=== PATIENT | female | born 1965 | race Caucasian/White ===

== ENCOUNTER 2018-02-08 14:46 | Emergency (ER) | payer SELFPAY ==
[2018-02-08 14:53] VITALS: BP 139/87; PULSE 96; RESP 22; TEMP 36.7; O2SAT 99
--- NOTE | 2018-02-08 15:17 | ED_ITS ---
HPI - Alcohol <Cee Ann PA-C - Last Filed: 02/08/18 22:41> General Chief Complaint: Toxicology Problem Stated Complaint: alcohol withdrawal Time Seen by Provider: 02/08/18 15:16 Source: patient Mode of arrival: ambulatory Limitations: no limitations History of Present Illness HPI narrative: This 52-year-old female states that she comes in requesting inpatient rehabilitation for alcohol use. Is she states has been drinking since about age 14, cannot say how many drinks daily but states that she will drink 1-2 large bottles of vodka per week. She states that she drinks from the bottle, sometimes hiding her use from her . She states that she does not think outpatient rehab would be feasible for her as far as follow through and also because her is an alcoholic. She states that she tried hypnosis 5 years ago and does think that more intensive therapy would be doable for her. She states that she felt a little shaky earlier with some nausea but that has resolved. She denies any other drug use. She denies any chronic medical problems Related Data Home Medications Medication Instructions Recorded Confirmed No Known Home Medications 02/08/18 02/08/18 Allergies Allergy/AdvReac Type Severity Reaction Status Date / Time No Known Drug Allergies Allergy Verified 02/08/18 14:57 Review of Systems <Cee Ann PA-C - Last Filed: 02/08/18 22:41> Review of Systems All systems reviewed & are unremarkable except as noted in HPI and below Exam <Cee Ann PA-C - Last Filed: 02/08/18 22:41> Narrative Exam Narrative: GENERAL APPEARANCE: Patient sitting comfortably, in no distress. HEENT: PERRL, EOMI, no scleral icterus NECK: Supple LUNGS: Clear to auscultation bilaterally. HEART: Rate and rhythm regular, normal S1 and S2, no S3 or S4. ABDOMEN: Soft, nontender, nondistended, bowel sounds present x 4 quadrants, no masses palpable, no hepatosplenomegaly. EXTREMITIES: No edema, no cyanosis DERMATOLOGIC: No jaundice or exanthem NEUROLOGIC: Alert and oriented with normal speech and coordination Initial Vital Signs Initial Vital Signs: Vital Signs Temperature 98.0 F 02/08/18 14:53 Pulse Rate 96 H 02/08/18 14:53 Respiratory Rate 22 02/08/18 14:53 Blood Pressure 139/87 02/08/18 14:53 Pulse Oximetry 99 02/08/18 14:53 <Luis Antonio Thacker DO - Last Filed: 02/09/18 18:31> Initial Vital Signs Initial Vital Signs: Vital Signs Temperature 98.0 F 02/08/18 14:53 Pulse Rate 96 H 02/08/18 14:53 Respiratory Rate 22 02/08/18 14:53 Blood Pressure 139/87 02/08/18 14:53 Pulse Oximetry 99 02/08/18 14:53 Course <Cee Ann PA-C - Last Filed: 02/08/18 22:41> Additional Information: Patient appeared neurologically normal. She did not have tremulousness. She denied nausea. She stated that she had been thinking about leaving because she knew she would feel better if she had a drink, and she is not sure if she just goes to ?detox? for a few days this will help her as she has done that on her own at home in the past. I advised her of the dangers of alcohol withdrawal and she states that she is well aware. We were in the process of working on placement for her in [place] when she walked out of the department. I phoned her this evening with lab results including elevated sodium. I reached her cell phone message service. Advised follow-up, either here, walk-in clinic, or given the number for [facility] where she may be able to get low-cost services and behavioral treatment as well. Orders Ordered: ED Orders 02/08/18 16:40 Urine Drug Screen, Rapid Stat 02/08/18 17:17 Complete Blood Count AUTO DIFF Stat Comprehensive Metabolic Panel Stat Ethanol (ETOH) Stat Thyroid Stimulating Hormone Stat Vital Signs - 8 hr 02/08/18 14:53 Temperature 98.0 F Pulse Rate 96 H Respiratory Rate 22 Blood Pressure 139/87 Pulse Oximetry 99 <Luis Antonio Thacker DO - Last Filed: 02/09/18 18:31> Orders Ordered: ED Orders 02/08/18 16:40 Urine Drug Screen, Rapid Stat 02/08/18 17:17 Complete Blood Count AUTO DIFF Stat Comprehensive Metabolic Panel Stat Ethanol (ETOH) Stat Thyroid Stimulating Hormone Stat Vital Signs - 8 hr 02/08/18 14:53 Temperature 98.0 F Pulse Rate 96 H Respiratory Rate 22 Blood Pressure 139/87 Pulse Oximetry 99 MDM - Alcohol <Cee Ann PA-C - Last Filed: 02/08/18 22:41> Lab Data Result diagrams: 02/08/18 17:17 02/08/18 17:17 Labs: Lab Results 02/08/18 02/08/18 02/08/18 Range/Units 16:40 17:17 17:17 WBC 7.0 (4.5-11.0) X10^3/uL RBC 4.93 (4.0-5.2) X10^6/uL Hgb 15.2 (12.0-16.0) g/dL Hct 45.0 (36-46) % MCV 91.2 (80-100) fL MCH 30.9 (26-34) PG MCHC 33.9 (30-36) % RDW 15.9 H (11.6-14.8) % Plt Count 340 (150-400) X10^3/uL Neut % (Auto) 43.9 L (50-75) % Lymph % (Auto) 49.0 H (25-40) % [place] % (Auto) 3.9 (3-14) % Eos % (Auto) 2.4 (2-4) % Baso % (Auto) 0.8 (0-2) % Neut # (Auto) 3100 (0425-0202) /uL Sodium 155 H (137-145) mmol/L Potassium 4.5 (3.4-5.1) mmol/L Chloride 110 H (98-107) mmol/L Carbon Dioxide 24 (22-32) mmol/L BUN 7 (7-17) mg/dL Creatinine 0.50 L (0.52-1.04) mg/dL Estimated GFR > 60.0 (>60) mL/min BUN/Creatinine Ratio 14.0 (6-22) Glucose 93 (70-100) mg/dL Calcium 9.4 (8.4-10.2) mg/dL Total Bilirubin 0.8 (0.2-1.3) mg/dL AST 62 H (14-36) IU/L ALT 47 (9-52) IU/L Alkaline Phosphatase 70 (38-126) U/L Total Protein 8.1 (6.3-8.2) g/dL Albumin 5.0 (3.5-5.0) g/dL Globulin 3.1 (1.7-4.1) g/dL Albumin/Globulin Ratio 1.6 (1.0-2.8) TSH (0.47-4.68) uIU/mL Urine Opiates Screen Negative (Negative) Ur Oxycodone Screen Negative (Negative) Urine Methadone Screen Negative (Negative) Ur Barbiturates Screen Negative (Negative) U Tricyclic Antidepress Negative (Negative) Ur Phencyclidine Scrn Negative (Negative) Ur Amphetamines Screen Negative (Negative) U Methamphetamines Scrn Negative (Negative) Ur MDMA Scrn (Ecstasy) Negative (Negative) U Benzodiazepines Scrn Negative (Negative) Urine Cocaine Screen Negative (Negative) U Marijuana (THC) Screen Negative (Negative) Ethyl Alcohol 296 mg/dL 02/08/18 Range/Units 17:17 WBC (4.5-11.0) X10^3/uL RBC (4.0-5.2) X10^6/uL Hgb (12.0-16.0) g/dL Hct (36-46) % MCV (80-100) fL MCH (26-34) PG MCHC (30-36) % RDW (11.6-14.8) % Plt Count (150-400) X10^3/uL Neut % (Auto) (50-75) % Lymph % (Auto) (25-40) % [place] % (Auto) (3-14) % Eos % (Auto) (2-4) % Baso % (Auto) (0-2) % Neut # (Auto) (1430-6538) /uL Sodium (137-145) mmol/L Potassium (3.4-5.1) mmol/L Chloride (98-107) mmol/L Carbon Dioxide (22-32) mmol/L BUN (7-17) mg/dL Creatinine (0.52-1.04) mg/dL Estimated GFR (>60) mL/min BUN/Creatinine Ratio (6-22) Glucose (70-100) mg/dL Calcium (8.4-10.2) mg/dL Total Bilirubin (0.2-1.3) mg/dL AST (14-36) IU/L ALT (9-52) IU/L Alkaline Phosphatase (38-126) U/L Total Protein (6.3-8.2) g/dL Albumin (3.5-5.0) g/dL Globulin (1.7-4.1) g/dL Albumin/Globulin Ratio (1.0-2.8) TSH 2.50 (0.47-4.68) uIU/mL Urine Opiates Screen (Negative) Ur Oxycodone Screen (Negative) Urine Methadone Screen (Negative) Ur Barbiturates Screen (Negative) U Tricyclic Antidepress (Negative) Ur Phencyclidine Scrn (Negative) Ur Amphetamines Screen (Negative) U Methamphetamines Scrn (Negative) Ur MDMA Scrn (Ecstasy) (Negative) U Benzodiazepines Scrn (Negative) Urine Cocaine Screen (Negative) U Marijuana (THC) Screen (Negative) Ethyl Alcohol mg/dL Point of Care Testing Test Results Negative Breathalizer 0.288 Urine Dip Bedside Urine Glucose Negative Bedside Urine Bilirubin - Negative Bedside Urine Ketone - Negative Urine Specific [place] 1.010 Bedside Urine Occult Blood - Negative Bedside Urine pH 6.0 Bedside Urine Protein - Negative Bedside Urine Urobilinogen - Negative Bedside Urine Nitrite - Negative Bedside Urine Leukocytes - Negative Esterase <Luis Antonio Thacker, DO - Last Filed: 02/09/18 18:31> Lab Data Labs: Lab Results 02/08/18 02/08/18 02/08/18 Range/Units 16:40 17:17 17:17 WBC 7.0 (4.5-11.0) X10^3/uL RBC 4.93 (4.0-5.2) X10^6/uL Hgb 15.2 (12.0-16.0) g/dL Hct 45.0 (36-46) % MCV 91.2 (80-100) fL MCH 30.9 (26-34) PG MCHC 33.9 (30-36) % RDW 15.9 H (11.6-14.8) % Plt Count 340 (150-400) X10^3/uL Neut % (Auto) 43.9 L (50-75) % Lymph % (Auto) 49.0 H (25-40) % [place] % (Auto) 3.9 (3-14) % Eos % (Auto) 2.4 (2-4) % Baso % (Auto) 0.8 (0-2) % Neut # (Auto) 3100 (9549-8105) /uL Sodium 155 H (137-145) mmol/L Potassium 4.5 (3.4-5.1) mmol/L Chloride 110 H (98-107) mmol/L Carbon Dioxide 24 (22-32) mmol/L BUN 7 (7-17) mg/dL Creatinine 0.50 L (0.52-1.04) mg/dL Estimated GFR > 60.0 (>60) mL/min BUN/Creatinine Ratio 14.0 (6-22) Glucose 93 (70-100) mg/dL Calcium 9.4 (8.4-10.2) mg/dL Total Bilirubin 0.8 (0.2-1.3) mg/dL AST 62 H (14-36) IU/L ALT 47 (9-52) IU/L Alkaline Phosphatase 70 (38-126) U/L Total Protein 8.1 (6.3-8.2) g/dL Albumin 5.0 (3.5-5.0) g/dL Globulin 3.1 (1.7-4.1) g/dL Albumin/Globulin Ratio 1.6 (1.0-2.8) TSH (0.47-4.68) uIU/mL Urine Opiates Screen Negative (Negative) Ur Oxycodone Screen Negative (Negative) Urine Methadone Screen Negative (Negative) Ur Barbiturates Screen Negative (Negative) U Tricyclic Antidepress Negative (Negative) Ur Phencyclidine Scrn Negative (Negative) Ur Amphetamines Screen Negative (Negative) U Methamphetamines Scrn Negative (Negative) Ur MDMA Scrn (Ecstasy) Negative (Negative) U Benzodiazepines Scrn Negative (Negative) Urine Cocaine Screen Negative (Negative) U Marijuana (THC) Screen Negative (Negative) Ethyl Alcohol 296 mg/dL 02/08/18 Range/Units 17:17 WBC (4.5-11.0) X10^3/uL RBC (4.0-5.2) X10^6/uL Hgb (12.0-16.0) g/dL Hct (36-46) % MCV (80-100) fL MCH (26-34) PG MCHC (30-36) % RDW (11.6-14.8) % Plt Count (150-400) X10^3/uL Neut % (Auto) (50-75) % Lymph % (Auto) (25-40) % [place] % (Auto) (3-14) % Eos % (Auto) (2-4) % Baso % (Auto) (0-2) % Neut # (Auto) (3250-1092) /uL Sodium (137-145) mmol/L Potassium (3.4-5.1) mmol/L Chloride (98-107) mmol/L Carbon Dioxide (22-32) mmol/L BUN (7-17) mg/dL Creatinine (0.52-1.04) mg/dL Estimated GFR (>60) mL/min BUN/Creatinine Ratio (6-22) Glucose (70-100) mg/dL Calcium (8.4-10.2) mg/dL Total Bilirubin (0.2-1.3) mg/dL AST (14-36) IU/L ALT (9-52) IU/L Alkaline Phosphatase (38-126) U/L Total Protein (6.3-8.2) g/dL Albumin (3.5-5.0) g/dL Globulin (1.7-4.1) g/dL Albumin/Globulin Ratio (1.0-2.8) TSH 2.50 (0.47-4.68) uIU/mL Urine Opiates Screen (Negative) Ur Oxycodone Screen (Negative) Urine Methadone Screen (Negative) Ur Barbiturates Screen (Negative) U Tricyclic Antidepress (Negative) Ur Phencyclidine Scrn (Negative) Ur Amphetamines Screen (Negative) U Methamphetamines Scrn (Negative) Ur MDMA Scrn (Ecstasy) (Negative) U Benzodiazepines Scrn (Negative) Urine Cocaine Screen (Negative) U Marijuana (THC) Screen (Negative) Ethyl Alcohol mg/dL Point of Care Testing Test Results Negative Breathalizer 0.288 Urine Dip Bedside Urine Glucose Negative Bedside Urine Bilirubin - Negative Bedside Urine Ketone - Negative Urine Specific [place] 1.010 Bedside Urine Occult Blood - Negative Bedside Urine pH 6.0 Bedside Urine Protein - Negative Bedside Urine Urobilinogen - Negative Bedside Urine Nitrite - Negative Bedside Urine Leukocytes - Negative Esterase Discharge Plan Departure Patient Disposition: Left Against Medical Advice Discharge Date/Time: 02/08/18 17:56 Interventions: ED Discharge Assessment Last Done: 02/08/18 17:55 Prescriptions: No Action No Known Home Medications RF: 0 Stand Alone Forms: Against Medical Advice <Luis Antonio Thacker DO - Last Filed: 02/09/18 18:31> Cosign ED Attending Tabithaature Attestation: I was available for consultation during this patient's emergency department encounter
--- NOTE | 2018-02-08 15:23 | PC.NURSE ---
Pt states her hands cramp up badly when she gets like this. She is tearful during assessment. Wants to call mother to have her join her.
[2018-02-08 17:08] LABS: Urine Amphetamines Negative (Negative); Urine Barbiturates Negative (Negative); Urine Benzodiazepines Negative (Negative); Urine Cocaine Negative (Negative); Urine MDMA Negative (Negative); Urine Methadone Negative (Negative); Urine Methamphetamines Negative (Negative); Urine Morphine/Opi cutoff 2000 Negative (Negative); Urine Oxycodone Negative (Negative); Urine Phencyclidine Negative (Negative); Urine Tetrahydrocannabinol Negative (Negative); Urine Tricyclic Antidepressant Negative (Negative)
[2018-02-08 17:25] LABS: Add Manual Diff / Slide Review NO; Basophils Percent Auto 0.8 % (0-2); Eosinophils Percent Auto 2.4 % (2-4); Hemoglobin 15.2 g/dL (12.0-16.0); Mean Corpuscular HGB Conc 33.9 % (30-36); Mean Corpuscular Hemoglobin 30.9 PG (26-34); Mean Corpuscular Volume 91.2 fL (80-100); Monocytes Percent Auto 3.9 % (3-14); Neutrophils Absolute Auto 3100 /uL (3000-5900); Neutrophils Percent Auto 43.9 % (50-75); Platelet Count 340 X10^3/uL (150-400); Red Blood Cell Count 4.93 X10^6/uL (4.0-5.2); Red Cell Distribution Width 15.9 % (11.6-14.8)
--- NOTE | 2018-02-08 17:28 | PC.NURSE ---
Pt walked out of exam room and headed towards exit. Stating she does not think we are going to do anything for her. States she does want to do detox and get cleared to go detox, but feels she is low on priority list. Explained reason for wait in ED. pt agrees to stay. Notified provider.
[2018-02-08 17:42] LABS: Alanine Aminotransferase 47 IU/L (9-52); Albumin Globulin Ratio 1.6 (1.0-2.8); Alkaline Phosphatase 70 U/L (38-126); Aspartate Aminotransferase 62 IU/L (14-36); Bilirubin Total 0.8 mg/dL (0.2-1.3); Blood Urea Nitrogen 7 mg/dL (7-17); Calcium 9.4 mg/dL (8.4-10.2); Carbon Dioxide 24 mmol/L (22-32); Chloride 110 mmol/L (98-107); Estimated Glomerular Filt Rate > 60.0 mL/min (>60); Ethanol (ETOH) 296 mg/dL; Globulin 3.1 g/dL (1.7-4.1); Glucose 93 mg/dL (70-100); HEMOLYSIS < 15 (0-50); Potassium 4.5 mmol/L (3.4-5.1); Sodium 155 mmol/L (137-145); Total Protein 8.1 g/dL (6.3-8.2)
== END 2018-02-08 17:56 | disposition left against medical advice (07) ==
PROVIDERS: Emergency Provider Internal Medicine
DX: F10.239 Alcohol dependence with withdrawal, unspecified (principal)
CPT/HCPCS: 80053; 80305; 80320; 81003; 81025; 82075; 84443; 85025; 99282; 99283

== ENCOUNTER → 2018-10-14 17:39 | Outpatient (ROUT) | payer SELFPAY | PROVIDERS: Visit Provider Nurse Practitioner Family | DX: M79.89 Other specified soft tissue disorders (principal) | CPT/HCPCS: 87070; 87205 ==

== ENCOUNTER → 2021-03-06 09:58 | Outpatient (CLI) | payer SELFPAY ==
--- NOTE | 2021-03-06 | DI.RAD.S_ITS ---
PROCEDURE: XR KUB INDICATIONS: ABDOMINAL PAIN, HEMATURIA, HX OF KIDNEY STONES TECHNIQUE: One view of the abdomen acquired. COMPARISON: None. FINDINGS: Surgical changes and devices: None. Bowel: Bowel gas pattern is normal. Soft tissues: No suspicious abdominal calcifications. Visualized solid organ contours appear normal in size. Bones: No suspicious bony lesions. Incidental lumbosacral transitional anatomy noted partial sacralization of the 5th lumbar vertebral body. IMPRESSION: Unremarkable abdominal radiograph Approved by: Dereje Hernandez M.D. on 03/06/2021 at 11:09
== END ==
PROVIDERS: PCP Physician Assistant; Referring Provider Physician Assistant; Visit Provider Physician Assistant
DX: R10.30 Lower abdominal pain, unspecified (principal); R31.9 Hematuria, unspecified
CPT/HCPCS: 74018

== ENCOUNTER → 2021-04-08 12:36 | Outpatient (ROUT) | payer OTHER, SELFPAY ==
[2021-04-08 15:42] LABS: COVID19 -Nasal RAPID Negative (Negative)
== END ==
PROVIDERS: PCP Physician Assistant; Visit Provider Physician Assistant
DX: Z20.822 Contact with and (suspected) exposure to COVID-19 (principal)
CPT/HCPCS: 87635

== ENCOUNTER → 2022-02-11 14:31 | Outpatient (CLI) | payer SELFPAY | PROVIDERS: Family Provider Physician Assistant; PCP Physician Assistant; Referring Provider Physician Assistant; Visit Provider Physician Assistant ==

== ENCOUNTER 2025-03-31 10:15 | Emergency (ER) | payer SELFPAY ==
[2025-03-31 10:25] VITALS: BP 124/70; PULSE 91; RESP 16; TEMP 37.1; O2SAT 96; BMI 29.0
--- NOTE | 2025-03-31 11:02 | DI.CT.S_ITS ---
PROCEDURE: CT ABDOMEN PELVIS W CON INDICATIONS: Epigastric abdominal pain TECHNIQUE: After the administration of intravenous contrast, axial sections acquired from the lung bases to the pubic symphysis. Coronal and sagittal reformats were performed. For radiation dose reduction, the following was used: automated exposure control, adjustment of mA and/or kV according to patient size. COMPARISON: None. FINDINGS: Image quality: Diagnostic. Lower Chest: A few solid pulmonary nodules in the lung bases, largest measuring 5 millimeters in the right lower lobe. Incidental bilateral proximal segmental pulmonary embolus. Enlarged periesophageal lymph nodes, largest measuring 8 millimeter (series 2, image 15). ABDOMEN: Liver: A subcapsular hypoattenuating lesions at the liver dome, largest measuring 5.4 centimeter. Gallbladder: No radiopaque gallstones or wall thickening. Biliary ducts: No biliary dilation. Pancreas: No ductal dilation. Spleen: Size is within normal limits. Adrenal Glands: No adrenal nodules. Kidneys and Ureters: No hydronephrosis. No solid mass. No complex renal cystic lesion which requires follow up. Prominent renal sinus cysts. Stomach and Bowel: Normal colonic caliber, without significant wall thickening. Colonic diverticulosis without evidence of diverticulitis. Peritoneum: Large volume ascites. Omental studding. Ventral Wall: No significant ventral hernia. Abdominal Nodes: No retroperitoneal or mesenteric adenopathy by size criteria. Vessels: Aorta and inferior vena cava are normal in size. PELVIS: Pelvic Organs: Complex right ovarian cystic and solid mass measuring at least 7.1 x 6.2 centimeter. The left ovary also appears mildly complex, measuring 3.4 centimeters. Bladder: No bladder wall thickening, accounting for underdistention. Pelvic Nodes: Complex right external iliac chain node measuring 4 centimeter short axis (series 2, image 128). Miscellaneous: No inguinal hernias are seen. Bones: No aggressive osseous abnormality. IMPRESSION: Incidental bilateral proximal segmental pulmonary emboli. No evidence of heart strain. Right ovarian cystic mass measuring approximately 7.1 x 6.2 centimeter. There is peritoneal carcinomatosis present, with large volume ascites, omental studding and hepatic subcapsular hypoattenuating lesions. Gynecologic/oncology referral is recommended. Right external iliac chain adenopathy and suspected mediastinal adenopathy, related to malignancy. Dictated by: Mando Carolina M.D. on 03/31/2025 at 11:31 Approved by: Mando Carolina M.D. on 03/31/2025 at 11:42
[2025-03-31 11:07] LABS: Add Manual Diff / Slide Review NO; Hematocrit 37.7 % (36-46); Hemoglobin 12.5 g/dL (12.0-16.0); Lymphocytes Absolute Auto 700 /uL (1100-4500); Mean Corpuscular HGB Conc 33.1 % (30-36); Mean Corpuscular Hemoglobin 30.7 PG (26-34); Mean Corpuscular Volume 92.8 fL (80-100); Platelet Count 208 X10^3/uL (150-400)
[2025-03-31 11:19] LABS: Alanine Aminotransferase 7 IU/L (<35); Albumin 3.4 g/dL (3.5-5.0); Albumin Globulin Ratio 1.2 (1.0-2.8); Alkaline Phosphatase 59 U/L (38-126); Blood Urea Nitrogen 7 mg/dL (7-17); Calcium 8.5 mg/dL (8.4-10.2); Carbon Dioxide 25 mmol/L (22-32); Chloride 107 mmol/L (98-107); Estimated Glomerular Filt Rate > 60 mL/min (>60); Globulin 2.9 g/dL (1.7-4.1); Glucose 103 mg/dL (70-99); HEMOLYSIS < 15 (0-50); Lipase 21 U/L (23-300); Potassium 3.7 mmol/L (3.4-5.1); Sodium 138 mmol/L (137-145); Total Protein 6.3 g/dL (6.3-8.2)
--- NOTE | 2025-03-31 21:22 | ED.ABDPAIN ---
HPI - Abdominal Pain General Chief Complaint: Abdominal Pain Stated Complaint: Sent from [facility], stomach pain Time Seen by Provider: 03/31/25 10:56 Source: patient Mode of arrival: Ambulatory History of Present Illness HPI narrative: This 59 yo female presents with lower abdominal pain for a few days. No shortness of breathor cough or emesis or diarrhea. No urinary symptoms. Patient never smoked. . Unclear if has had any surgery. PMH is negative. Related Data Previous Rx's ?Medication ?Instructions ?Recorded ibuprofen 600 mg tablet 600 mg PO QID #40 tabs 03/31/25 Allergies Allergy/AdvReac Type Severity Reaction Status Date / Time erythromycin base Allergy Unknown Verified 03/31/25 10:25 Review of Systems Review of Systems ROS Unobtainable: All systems reviewed & are unremarkable except as noted in HPI and below Constitutional Comments: Malaise secondary to lower abdominal pain . No emesis or diarrhea, Medical history is negtive Cardiovascular Comments: Regular rhythm without murmur Respiratory Comments: Clear BS Gastrointestinal Comments: Palpable moderate periumbilical to lower abdominal tenderness of moderate degree without guarding or rebound, Hypoactive BS. Mild distension. Musculoskeletal Comments: NROM without edema Patient History Medical History (Updated 03/31/25 @ 14:16 by Katheryn Greer MD) H/O ETOH abuse Social History (Updated 02/08/18 @ 18:05 by Cee Ann PA-C) alcohol intake: current substance use type: does not use Smoking Status: Never smoker alcohol intake frequency: 3 or more drinks per day Exam Initial Vital Signs Initial Vital Signs: Vital Signs Temperature 98.7 F 03/31/25 10:25 Pulse Rate 91 H 03/31/25 10:25 Respiratory Rate 16 03/31/25 10:25 Blood Pressure 124/70 03/31/25 10:25 Pulse Oximetry 96 03/31/25 10:25 Oxygen Delivery Method Room Air 03/31/25 10:25 Const General: cooperative and other (No severe distress ) HENMT Head: normal to inspection Eyes Pupils: PERRL EOM: EOM intact bilaterally Neck Neck: normal visual inspection, full ROM and other (no enlarged nodes. ) Resp Effort & Inspection: normal respiratory effort Auscultation: clear to auscultation bilaterally (except some atelectatic faint rales in lung bases. ) Cardio Rate: regular rate Rhythm: regular rhythm GI Other: Periumbilical to lower abdominal moderate tenderness without rebound or guarding. Hypoactive BS . Slight distension Extrem General: normal to inspection and full ROM Course Orders Ordered: Discontinued Medications Sodium Chloride (Normal Saline 0.9%) 500 mls @ 1,000 mls/hr IV BOLUS ONE Stop: 03/31/25 11:26 Last Admin: 03/31/25 11:45 Dose: Not Given Documented By: MELANIA Ondansetron HCl (Ondansetron 4 Mg/2 Ml Inj) 4 mg IV NOW PRN PRN Reason: Nausea And Vomiting Ondansetron HCl (Ondansetron 4 Mg Odt) 4 mg PO NOW PRN PRN Reason: Nausea And Vomiting MDM - Abdominal Pain Differential Diagnosis Differential diagnosis: Likely abdominal pain, acute appendicitis, diverticulitis, endometriosis and small bowel obstruction Lab Data Attestation: I reviewed the patient's lab results. 03/31/25 10:59 03/31/25 10:59 Labs: Lab Results 03/31/25 Range/Units 10:59 WBC 3.7 L (4.5-11.0) X10^3/uL RBC 4.06 (4.0-5.2) X10^6/uL Hgb 12.5 (12.0-16.0) g/dL Hct 37.7 (36-46) % MCV 92.8 (80-100) fL MCH 30.7 (26-34) PG MCHC 33.1 (30-36) % RDW 14.9 H (11.6-14.8) % Plt Count 208 (150-400) X10^3/uL Neut % (Auto) 60.9 (50-75) % Lymph % (Auto) 18.6 L (25-40) % [place] % (Auto) 16.3 H (3-14) % Eos % (Auto) 3.5 (2-4) % Baso % (Auto) 0.7 (0-2) % Neut # (Auto) 2200 (0618-0016) /uL Lymph # (Auto) 700 L (7313-1806) /uL [place] # (Auto) 600 (0-900) /uL Eos # (Auto) 100 (0-450) /uL Baso # (Auto) 0 (0-100) /uL Sodium 138 (137-145) mmol/L Potassium 3.7 (3.4-5.1) mmol/L Chloride 107 (98-107) mmol/L Carbon Dioxide 25 (22-32) mmol/L BUN 7 (7-17) mg/dL Creatinine 0.55 (0.52-1.04) mg/dL Estimated GFR > 60 (>60) mL/min BUN/Creatinine Ratio 12.7 (6-22) Glucose 103 H (70-99) mg/dL Calcium 8.5 (8.4-10.2) mg/dL Total Bilirubin 0.8 (0.2-1.3) mg/dL AST 16 (14-36) IU/L ALT 7 (<35) IU/L Alkaline Phosphatase 59 (38-126) U/L Total Protein 6.3 (6.3-8.2) g/dL Albumin 3.4 L (3.5-5.0) g/dL Globulin 2.9 (1.7-4.1) g/dL Albumin/Globulin Ratio 1.2 (1.0-2.8) Lipase 21 L (23-300) U/L [facility] Narrative Medical decision making narrative: This 59 yo female presents with a few days of mid to lower abdominal pain . lab actually revealed a low WBC of 3.7. Lipase was normal. CT of abdomen/pelvis revealed a large mass off right ovary with pelvic carcinomatosis and omental studding and hepatic subcapsular lesions. Incidental bilateral segmental pulmonary emboli. A CT head was going to be ordered to make certain no metastases before consideration of anticoagulation for PE's. However at this point the patient chose to leave AMA and given rx for pain medication, didn't think needed narcotic. Encouraged to follow-up with gynecologic oncology- referred to practitioner in [place]. Signed out AMA.. Discharge Plan Departure Patient Disposition: Left Against Medical Advice Clinical Impression: Mass of right ovary, Pulmonary emboli Activity Restrictions/Additional Instructions: None Prescriptions: New ibuprofen 600 mg tablet 600 mg PO QID Qty: 40 0RF Referrals: Adri Styles PA-C [Primary Care Provider, Medical] Barbie Varghese MD [Non-Staff, Gynecologic Oncology] Referral Note: See in next week to get set up for biopsy and also to get treatment for PE Clinical Impression: Mass of right ovary; Pulmonary emboli Stand Alone Forms: Patient Portal/API, Against Med. Advice (Turkish)
== END 2025-03-31 14:30 | disposition left against medical advice (07) ==
PROVIDERS: Emergency Provider Emergency Medicine; Family Provider Physician Assistant; PCP Physician Assistant
DX: N83.8 Other noninflammatory disorders of ovary, fallopian tube and broad ligament (principal); I26.99 Other pulmonary embolism without acute cor pulmonale
CPT/HCPCS: 36415; 74177; 80053; 83690; 85025; 99283; 99284; Q9967